=== PATIENT | female | born 1960 | race African-American/Black ===

== ENCOUNTER 2019-10-30 09:43 | Emergency (ER) | payer MEDICAID, OTHER ==
[~2019-10-30] VITALS: Ht 154.9 cm; Wt 61.0 kg
[~2019-10-30 09:43] MED LIST: ASPI-518; ATOR20TA PO; HYDR25TA PO; LISI20TA; METF-414
[2019-10-30] MEDS ORDERED: IBUPROFEN 600MG TABLET PO ONE (11:00)
[2019-10-30 11:57] VITALS: BP 185/76
== END 2019-10-30 12:47 | disposition home or self-care (01) ==
LOC: ER 10:22
DX: S09.8XXA Other specified injuries of head, initial encounter (principal); S60.211A Contusion of right wrist, initial encounter; W01.198A Fall on same level from slipping, tripping and stumbling with subsequent striking against other object, initial encounter; Y93.01 Activity, walking, marching and hiking; Y92.480 Sidewalk as the place of occurrence of the external cause; I10 Essential (primary) hypertension; E11.9 Type 2 diabetes mellitus without complications; E78.00 Pure hypercholesterolemia, unspecified
CPT/HCPCS: 73110; 99283

== ENCOUNTER 2021-09-08 09:01 | Emergency (ER) | payer MEDICAID ==
[~2021-09-08] VITALS: Ht 154.9 cm; Wt 60.0 kg
[2021-09-08] MEDS ORDERED: ACETAMINOPHEN 325MG TABLET PO ONE (09:15)
[2021-09-08] MEDS ORDERED: IBUP-2029 MT (10:12)
[2021-09-08] MEDS ORDERED: IBUPROFEN 600MG TABLET PO ONE (10:15)
[2021-09-08 11:01] VITALS: BP 160/90
== END 2021-09-08 11:03 | disposition home or self-care (01) ==
LOC: ER 09:01
DX: S00.03XA Contusion of scalp, initial encounter (principal); S63.502A Unspecified sprain of left wrist, initial encounter; I10 Essential (primary) hypertension; E11.9 Type 2 diabetes mellitus without complications; E78.00 Pure hypercholesterolemia, unspecified; Z79.82 Long term (current) use of aspirin; Z79.84 Long term (current) use of oral hypoglycemic drugs; W01.0XXA Fall on same level from slipping, tripping and stumbling without subsequent striking against object, initial encounter; Y93.E1 Activity, personal bathing and showering; Y92.012 Bathroom of single-family (private) house as the place of occurrence of the external cause
CPT/HCPCS: 73110; 99284